=== PATIENT | female | born 2000 | race Caucasian/White ===

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

== ENCOUNTER 2023-01-21 18:42 | Emergency (ER) | payer OTHER ==
[~2023-01-21] VITALS: Ht 167.6 cm; Wt 131.8 kg
[~2023-01-21 18:42] MED LIST: IBUP-1493 PO; PREN1TAB80 PO
[2023-01-21 18:49] VITALS: TEMP 97.9
[2023-01-21] MEDS ORDERED: ONDANSETRON HCL 4 MG TABLET PO ONE (19:00)
[2023-01-21] MEDS ORDERED: KETOROLAC TROMETHAMINE 60 MG/2 ML VIAL IM ONE (19:00)
[2023-01-21] MEDS ORDERED: HYDROCODONE/ACETAMINOPHEN 5-325 MG TABLET PO ONE (19:00)
[2023-01-21] MEDS ORDERED: CORTSOL AU (20:14)
[2023-01-21] MEDS ORDERED: HYDR-4072 PO (20:14)
[2023-01-21] MEDS ORDERED: IBUP-1554 PO (20:14)
[2023-01-21] MEDS ORDERED: CEPH-558 PO (20:14)
[2023-01-21 20:34] VITALS: BP 126/79; PULSE 86; RESP 16
== END 2023-01-21 20:35 | disposition home or self-care (01) ==
LOC: EMS 18:43
DX: H66.92 Otitis media, unspecified, left ear (principal); H60.92 Unspecified otitis externa, left ear; J02.9 Acute pharyngitis, unspecified
CPT/HCPCS: 99283; 81025; 96372; J1885; Q0162

== ENCOUNTER 2023-02-13 01:51 | Emergency (ER) | payer OTHER ==
[~2023-02-13] VITALS: Ht 162.6 cm; Wt 133.0 kg
[~2023-02-13 01:51] MED LIST changes: +CEPH-558 PO; +CORTSOL AU; +HYDR-4072 PO; +IBUP-1554 PO; -PREN1TAB80 PO
[2023-02-13 01:59] VITALS: TEMP 98.8
[2023-02-13 02:06] VITALS: BP 122/69; PULSE 103; RESP 17
[2023-02-13] MEDS ORDERED: ACET-3385 PO (02:13)
[2023-02-13] MEDS ORDERED: DOXY-354 PO (02:13)
[2023-02-13] MEDS ORDERED: ACETAMINOPHEN 500 MG TABLET PO ONE (02:15)
[2023-02-13] MEDS ORDERED: DOXYCYCLINE HYCLATE 100 MG TABLET PO ONE (02:15)
== END 2023-02-13 02:52 | disposition home or self-care (01) ==
LOC: EMS 01:51
DX: L03.116 Cellulitis of left lower limb (principal)
CPT/HCPCS: 99284; Z7502; Z7610

== ENCOUNTER 2023-02-14 19:18 | Emergency (ER) | payer OTHER ==
[~2023-02-14] VITALS: Ht 170.2 cm; Wt 133.2 kg
[~2023-02-14 19:18] MED LIST changes: +ACET-3385 PO; +DOXY-354 PO
[2023-02-14] MEDS ORDERED: DOXYCYCLINE HYCLATE 100 MG TABLET PO ONE (22:30)
[2023-02-14 23:17] VITALS: BP 133/69; PULSE 100; RESP 18; TEMP 97.9
== END 2023-02-14 23:47 | disposition home or self-care (01) ==
LOC: EMS 19:18
DX: L03.116 Cellulitis of left lower limb (principal)
CPT/HCPCS: 99283